=== PATIENT | female | born 1990 | race Caucasian/White ===

== ENCOUNTER 2024-09-06 12:22 | Inpatient (IN) | payer OTHER ==
[~2024-09-06] VITALS: Ht 167.6 cm; Wt 78.9 kg
[2024-09-06] VITALS (8 sets, daily range): BP systolic 111–140; BP diastolic 66–78
[2024-09-06] MEDS ORDERED: RINGERS SOLUTION,LACTATED 1,000 ML IV SCH (12:30)
[2024-09-06] MEDS ORDERED: PRENATABS RX T1 EACH PO (12:52)
[2024-09-06 13:59] LABS: HEMATOCRIT 29.8 % (36.0-45.00); MEAN CELL VOLUME 80.9 fL (80.00-100.00); MEAN CORPUSCULAR HEMOGLOBIN 27.1 pg (27.00-32.0); MEAN CORPUSCULAR HGB CONC 33.4 g/dl (32.0-36.0); PLATELET COUNT 193 K/uL (150-450); RED BLOOD COUNT 3.69 M/uL (4.00-6.00); RED CELL DISTRIBUTION WIDTH 20.8 % (11.5-14.5)
[2024-09-06 14:01] LABS: PH,URINE 6.5 (5.0-8.0); URINE APPEARANCE Clear; URINE BILIRRUBIN Negative (NEGATIVE); URINE BLOOD Negative; URINE COLOR Yellow; URINE GLUCOSE Negative (NEGATIVE); URINE KETONE Negative (NEGATIVE); URINE LEUKOCYTE Negative; URINE NITRATE Negative; URINE PROTEIN Negative (NEGATIVE); URINE UROBILINOGEN 0.2 E.U./dl
[2024-09-06 14:05] LABS: URINE BACTERIA 42.8 uL (0.0-1933); URINE EPITHELIAL CELLS 5.5 uL (0.0-38.8); URINE WBC 2.2 uL (0.0-23.2)
[2024-09-06] MEDS ORDERED: OXYTOCIN 500 ML IV ONE (14:15)
[2024-09-06 14:33] LABS: INR < 0.93
[2024-09-06 14:38] LABS: URINE RBC 0.8 uL (0.0-20.8)
[2024-09-06 14:44] LABS: ALBUMIN 2.8 gm/dL (3.4-5.0); BILIRUBIN TOTAL 0.78 mg/dL (0.3-1.2); CALCIUM 8.9 mg/dL (8.5-10.1); CREATININE SERUM 0.58 mg/dL (0.55-1.02); GFR 117.63; GLOBULINA 3.3 G/DL (2.4-3.5); POTASSIUM 4.34 mEq/L (3.5-5.1); TOTAL PROTEIN 6.1 gm/dL (6.4-8.2)
[2024-09-06] MEDS ORDERED: ERYTHROMYCIN BASE OPHT 1GM EACH TUBE OP ONE ×2 (17:47→23:00)
[2024-09-06] MEDS ORDERED: OXYTOCIN 20 UNITS/1000ML RL PIGGYBAG IV ONE (17:47)
[2024-09-06] MEDS ORDERED: LIDOCAINE HCL 1% 10ML VIAL ONE (17:47)
[2024-09-06] MEDS ORDERED: CHLORHEXIDINE GLUCONATE 120 ML BOTTLE TOP ONE (17:47)
[2024-09-06] MEDS ORDERED: ACETAMINOPHEN 500 MG GEL..CAP PO PRN (22:45)
[2024-09-06] MEDS ORDERED: CHLORHEXIDINE GLUCONATE 120 ML BOTTLE TOP SCH (22:45)
[2024-09-06] MEDS ORDERED: OXYTOCIN 1,000 ML IV ONE (22:45)
[2024-09-06] MEDS ORDERED: LIDOCAINE HCL 1% 10ML VIAL IJ ONE (23:00)
[2024-09-07 02:28] VITALS: BP 113/71
[2024-09-07 06:59] LABS: HEMATOCRIT 37.5 % (36.0-45.00); HEMOGLOBIN 12.5 g/dL (12.0-15.00); MEAN CELL VOLUME 81.2 fL (80.00-100.00); MEAN CORPUSCULAR HGB CONC 33.2 g/dl (32.0-36.0); PLATELET COUNT 215 K/uL (150-450); RED BLOOD COUNT 4.62 M/uL (4.00-6.00); RED CELL DISTRIBUTION WIDTH 20.8 % (11.5-14.5)
[2024-09-07 08:00] VITALS: BP 126/75
[2024-09-07] MEDS ORDERED: DOCUSATE SODIUM 100MG CAP PO SCH (09:00)
[2024-09-07] MEDS ORDERED: PNV,CALCIUM 72/IRON/FOLIC ACID 1 TAB TABLET PO SCH (09:00)
[2024-09-07 16:55] VITALS: BP 118/73
[2024-09-08 00:50] VITALS: BP 118/76
== END 2024-09-08 10:49 | disposition home or self-care (01) | DRG 807 ==
LOC: LDR 12:22 → OB/GYN 09-07 01:32
PROVIDERS: Obstetrics & Gynecology Gynecology; ADMIT Obstetrics & Gynecology; ATTEND Obstetrics & Gynecology
PROC: 10E0XZZ Delivery of Products of Conception, External Approach (ICD-10-PCS; principal; 2024-09-06)
PROC: 0KQM0ZZ Repair Perineum Muscle, Open Approach (ICD-10-PCS; 2024-09-06)
PROC: 4A1HXCZ Monitoring of Products of Conception, Cardiac Rate, External Approach (ICD-10-PCS; 2024-09-06)
DX: O70.1 Second degree perineal laceration during delivery (principal); Z37.0 Single live birth; Z3A.39 39 weeks gestation of pregnancy